=== PATIENT | female | born 2000 | race Two or more races ===

== ENCOUNTER 2022-09-09 18:20 | Emergency (ER) | payer OTHER ==
[~2022-09-09] VITALS: Ht 340.4 cm; Wt 86.5 kg
[2022-09-09 22:08] VITALS: BP 116/72
== END 2022-09-09 22:08 | disposition home or self-care (01) ==
LOC: ER 18:20
DX: M25.532 Pain in left wrist (principal); Z91.040 Latex allergy status
CPT/HCPCS: 73110